=== PATIENT | male | born 1985 | race Caucasian/White ===

== ENCOUNTER 2021-06-15 23:59 | Emergency (ER) | payer SELFPAY ==
[~2021-06-15] VITALS: Ht 177.8 cm; Wt 86.0 kg
--- NOTE | 2021-06-16 00:05 | NUR ---
Code was called off. Pt was pronounced at 0005.
--- NOTE | 2021-06-16 01:00 | NUR ---
Parent's Stalin Valladares and Mignon Valladares were notifed in person. Their address is: [address] [place]. [address] Mignon's phone: [phone] Stalin's phone: [phone] Address that pt's was found: [address] [place], [place]
[2021-06-16] MEDS ORDERED: epiNEPHrine 0.1mg/ml 10ml syringe ONE (08:00)
== END 2021-06-16 00:05 ==
LOC: EDBD 06-16 → ER 06-16
DX: I46.9 Cardiac arrest, cause unspecified (principal)
CPT/HCPCS: 31500; 99285; J0171